=== PATIENT | male | born 1990 | race Caucasian/White ===

== ENCOUNTER 2023-10-22 10:02 | Emergency (ER) | payer OTHER, SELFPAY ==
[2023-10-22] MEDS ORDERED: Fluorescein Opthalmic Strip ONE (10:26)
[2023-10-22] MEDS ORDERED: Proparacaine 0.5% Opth 15 ML BOT ONE (10:26)
== END 2023-10-22 10:51 | disposition home or self-care (01) ==
LOC: ERS 10:02
DX: S05.01XA Injury of conjunctiva and corneal abrasion without foreign body, right eye, initial encounter (principal); F17.210 Nicotine dependence, cigarettes, uncomplicated; F17.290 Nicotine dependence, other tobacco product, uncomplicated; W45.8XXA Other foreign body or object entering through skin, initial encounter
CPT/HCPCS: 99283